=== PATIENT | female | born 1995 | race Caucasian/White ===

== ENCOUNTER → 2016-11-06 | Outpatient (CLI) | payer BC, MEDICAID ==
[~2016-11-06] MED LIST: ACET50TA PO; IBUP-1114 PO; IBUP80TA PO; PRENTAB9 PO; VALT500T PO
[2016-11-06 15:15] LABS: CONTROL LINE HCG INT CTR LINE PRESENT
== END | disposition home or self-care (01) ==
LOC: M LAB 13:43
PROVIDERS: ATTEND Advanced Practice Midwife
DX: N91.2 Amenorrhea, unspecified (principal)

== ENCOUNTER → 2016-11-20 | Outpatient (CLI) | payer BC, MEDICAID ==
--- NOTE | 2016-11-20 18:40 | REP ---
Clinical: Back pain. Comparison: 12/28/2014 . Technique: AP, lateral, bilateral oblique, and coned-down views. Findings: Alignment and lordosis is maintained. The vertebral bodies including transverse process and spinous processes are intact and normal. There is no evidence for acute fracture / compression injury or subluxation. No evidence for spondylolysis or spondylolisthesis. No significant degenerative change is noted. Impression: Normal lumbosacral spine radiograph series. Signed by Dong Talbert MD 11/20/2016 06:32 P
== END ==
LOC: M WUC 18:14
PROVIDERS: ATTEND Family Medicine
DX: M54.5 Low back pain (principal)

== ENCOUNTER → 2017-03-04 | Outpatient (REF) | payer BC, MEDICAID | LOC: M LAB REF 17:02 | PROVIDERS: ATTEND Physician Assistant | DX: N39.0 Urinary tract infection, site not specified (principal) ==

== ENCOUNTER 2017-04-16 14:40 | Emergency (ER) | payer BC, MEDICAID ==
[~2017-04-16] VITALS: Ht 157.5 cm; Wt 50.4 kg
[2017-04-16 14:40] VITALS: BP 120/76
== END 2017-04-16 15:34 | disposition left against medical advice (07) ==
LOC: M ED 14:40
DX: N89.8 Other specified noninflammatory disorders of vagina (principal)

== ENCOUNTER 2017-04-24 14:43 | Emergency (ER) | payer BC, MEDICAID ==
[~2017-04-24] VITALS: Ht 157.5 cm; Wt 50.5 kg
[2017-04-24 18:04] VITALS: BP 125/73
[2017-04-24] MEDS ORDERED: AZITHROMYCIN 250 MG TAB PO ONE (18:15)
== END 2017-04-24 18:18 | disposition home or self-care (01) ==
LOC: M ED 14:43
DX: N93.8 Other specified abnormal uterine and vaginal bleeding (principal); A56.02 Chlamydial vulvovaginitis

== ENCOUNTER 2017-05-11 15:38 | Emergency (ER) | payer BC, MEDICAID ==
[~2017-05-11] VITALS: Ht 157.5 cm; Wt 50.4 kg
[2017-05-11 18:43] VITALS: BP 116/74
== END 2017-05-11 18:44 | disposition home or self-care (01) ==
LOC: M ED 15:38
DX: R10.2 Pelvic and perineal pain (principal); N89.8 Other specified noninflammatory disorders of vagina; Z87.440 Personal history of urinary (tract) infections

== ENCOUNTER → 2017-10-16 | Outpatient (CLI) | payer BC, MEDICAID | LOC: M RAD 10:23 | DX: O03.9 Complete or unspecified spontaneous abortion without complication (principal); Z3A.01 Less than 8 weeks gestation of pregnancy | CPT/HCPCS: 76801 ==

== ENCOUNTER 2018-03-18 02:32 | Emergency (ER) | payer BC, MEDICAID ==
[2018-03-18 05:15] LABS: BEDSIDE GLUCOSE 120 MG/DL (70-105)
[2018-03-18 05:21] LABS: BASO % 0.6 % (0.0-1.0); EOS # 0.1 10^3/uL (0.0-0.50); EOS % 1.3 % (0.0-3.0); IMMATURE GRANULOCYTE % 0.2 % (0-3.0); LYMPH # 1.7 10^3/uL (1.5-6.5); LYMPH % 32.7 % (24.0-44.0); MEAN CORPUSCULAR HEMOGLOBIN 29.7 pg (27.0-33.0); MEAN CORPUSCULAR HGB CONC 34.2 g/dl (32.0-36.5); MEAN CORPUSCULAR VOLUME 86.8 fl (80.0-96.0); MONO # 0.6 10^3/uL (0.0-0.8); MONO % 10.3 % (0.0-5.0); NEUTROPHILS # 2.9 10^3/uL (1.8-7.7); NEUTROPHILS % 54.9 % (36.0-66.0); PLATELET COUNT, AUTOMATED 290 10^3/uL (150-450); RED BLOOD COUNT 4.38 10^6/uL (4.00-5.40); RED CELL DISTRIBUTION WIDTH 12.7 % (11.5-14.5); WHITE BLOOD COUNT 5.3 10^3/uL (4.0-10.0)
[2018-03-18 05:26] LABS: CONTROL LINE HCG INT CTR LINE PRESENT; HCG, SERUM QUALITATIVE NEGATIVE (NEGATIVE)
[2018-03-18 05:39] LABS: OSMOLALITY SERUM 343 MOSM/KG (275-295)
[2018-03-18 05:43] LABS: ALBUMIN 3.9 GM/DL (3.2-5.2); ALBUMIN/GLOBULIN RATIO 0.93 (1.00-1.93); ALKALINE PHOSPHATASE 67 U/L (45-117); ALT/SGPT 23 U/L (12-78); ANION GAP 9 MEQ/L (8-16); AST/SGOT 24 U/L (7-37); BILIRUBIN,DIRECT < 0.1 MG/DL (0.0-0.2); BILIRUBIN,TOTAL 0.2 MG/DL (0.2-1.0); BLOOD UREA NITROGEN 6 MG/DL (7-18); CALCIUM LEVEL 8.1 MG/DL (8.5-10.1); CARBON DIOXIDE LEVEL 24 MEQ/L (21-32); CHLORIDE LEVEL 112 MEQ/L (98-107); CPK CREATINE PHOSPHOKINASE 304 U/L (26-192); CREATININE FOR GFR 0.76 MG/DL (0.55-1.30); ETHYL ALCOHOL (ETHANOL) 0.178 % (0.000-0.010); GLOMERULAR FILTRATION RATE > 60.0 (>60); GLUCOSE, FASTING 104 MG/DL (70-100); POTASSIUM SERUM 3.1 MEQ/L (3.5-5.1); SALICYLATE LEVEL < 1.7 MG/DL (5.0-30.0); SODIUM LEVEL 145 MEQ/L (136-145); TOTAL PROTEIN 8.1 GM/DL (6.4-8.2)
[2018-03-18 05:48] LABS: ACETAMINOPHEN LEVEL < 2.0 UG/ML (10.0-30.0)
[2018-03-18] MEDS: NS 1,000 ML IV (06:00)
[2018-03-18 07:01] LABS: LACTIC ACID SEPSIS PROTOCOL 1.3 MMOL/L (0.4-2.0)
[2018-03-18 07:10] LABS: AMPHETAMINES LEVEL URINE NEGATIVE (NEGATIVE); BARBITURATES URINE NEGATIVE (NEGATIVE); BENZODIAZEPINES URINE POSITIVE (NEGATIVE); CANNABINOIDS URINE NEGATIVE (NEGATIVE); COCAINE METABOLITE URINE NEGATIVE (NEGATIVE); METHADONE URINE NEGATIVE (NEGATIVE); OPIATES URINE NEGATIVE (NEGATIVE); PHENCYCLIDINE URINE NEGATIVE (NEGATIVE)
== END 2018-03-18 09:40 | disposition home or self-care (01) ==
LOC: M ED 02:32
DX: F10.129 Alcohol abuse with intoxication, unspecified (principal)
CPT/HCPCS: 93005

== ENCOUNTER → 2018-04-24 | Outpatient (CLI) | payer BC, MEDICAID | LOC: M OUTALCOH 12:36 | DX: Z13.9 Encounter for screening, unspecified (principal); F10.10 Alcohol abuse, uncomplicated | CPT/HCPCS: H0050 ==

== ENCOUNTER → 2018-05-08 | Outpatient (CLI) | payer BC, MEDICAID | LOC: M OUTALCOH 15:13 | DX: F10.10 Alcohol abuse, uncomplicated (principal) ==

== ENCOUNTER 2018-06-03 16:00 | Outpatient (RCR) | payer BC, MEDICAID | END 2018-06-29 | LOC: M OUTALCOH 06-10 16:00 | DX: F10.10 Alcohol abuse, uncomplicated (principal) ==

== ENCOUNTER 2018-07-01 16:00 | Outpatient (RCR) | payer BC, MEDICAID | END 2018-07-30 | LOC: M OUTALCOH 07-08 16:00 | DX: F10.10 Alcohol abuse, uncomplicated (principal) ==

== ENCOUNTER → 2018-07-22 | Outpatient (REF) | payer BC ==
[2018-07-22 12:51] LABS: BASO % 0.5 % (0.0-1.0); EOS # 0.3 10^3/uL (0.0-0.50); EOS % 4.2 % (0.0-3.0); HEMOGLOBIN 13.9 g/dl (12.0-15.5); IMMATURE GRANULOCYTE % 0.3 % (0-3.0); LYMPH # 2.2 10^3/uL (1.5-6.5); LYMPH % 34.6 % (24.0-44.0); MEAN CORPUSCULAR HEMOGLOBIN 30.2 pg (27.0-33.0); MEAN CORPUSCULAR HGB CONC 33.9 g/dl (32.0-36.5); MEAN CORPUSCULAR VOLUME 89.1 fl (80.0-96.0); MONO # 0.8 10^3/uL (0.0-0.8); NEUTROPHILS % 48.4 % (36.0-66.0); PLATELET COUNT, AUTOMATED 374 10^3/uL (150-450); RED CELL DISTRIBUTION WIDTH 12.1 % (11.5-14.5); WHITE BLOOD COUNT 6.2 10^3/uL (4.0-10.0)
[2018-07-22 23:28] LABS: ESTIMATED AVERAGE GLUCOSE 111 MG/DL (60-110); HEMOGLOBIN A1c 5.5 %
[2018-07-23 00:09] LABS: ALBUMIN/GLOBULIN RATIO 1.05 (1.00-1.93); ALKALINE PHOSPHATASE 65 U/L (45-117); ALT/SGPT 22 U/L (12-78); ANION GAP 11 MEQ/L (8-16); AST/SGOT 15 U/L (7-37); BILIRUBIN,TOTAL 0.2 MG/DL (0.2-1.0); BLOOD UREA NITROGEN 11 MG/DL (7-18); CALCIUM LEVEL 9.1 MG/DL (8.5-10.1); CARBON DIOXIDE LEVEL 24 MEQ/L (21-32); CHLORIDE LEVEL 106 MEQ/L (98-107); CHOLESTEROL LEVEL 120 MG/DL (<200); CHOLESTEROL RISK RATIO 3.076 (<5); GLOMERULAR FILTRATION RATE > 60.0 (>60); GLUCOSE, FASTING 64 MG/DL (70-100); HDL CHOLESTEROL 39 MG/DL (>40); LDL CHOLESTEROL 72 MG/DL (<100); NON-HDL-C 81 MG/DL; POTASSIUM SERUM 4.1 MEQ/L (3.5-5.1); SODIUM LEVEL 141 MEQ/L (136-145); TOTAL PROTEIN 7.8 GM/DL (6.4-8.2); TRIGLYCERIDES LEVEL 45 MG/DL (<150)
[2018-07-23 00:10] LABS: TOTAL 25(OH) VITAMIN D 65.2 NG/ML (30.0-100.0)
[2018-07-23 00:11] LABS: PTH INTACT 32.7 PG/ML (18.5-88.0)
== END ==
LOC: M SFHCPLAZ 11:42
DX: Z13.228 Encounter for screening for other metabolic disorders (principal); E55.9 Vitamin D deficiency, unspecified
CPT/HCPCS: 80053

== ENCOUNTER 2018-08-01 15:10 | Outpatient (RCR) | payer BC, MEDICAID | END 2018-08-29 | LOC: M OUTALCOH 15:10 | DX: F10.10 Alcohol abuse, uncomplicated (principal) ==

== ENCOUNTER 2018-09-26 11:00 | Outpatient (RCR) | payer BC, MEDICAID ==
[~2018-09-26 11:00] MED LIST changes: +MAPA500T2 PO
== END 2018-09-29 ==
LOC: M OUTALCOH 11:00
PROVIDERS: ATTEND Psychiatry & Neurology Psychiatry
DX: F10.10 Alcohol abuse, uncomplicated (principal)

== ENCOUNTER 2018-10-06 09:02 | Outpatient (RCR) | payer BC, MEDICAID | END 2018-10-30 | LOC: M OUTALCOH 09:02 | PROVIDERS: ATTEND Psychiatry & Neurology Psychiatry | DX: F10.10 Alcohol abuse, uncomplicated (principal) ==

== ENCOUNTER 2018-12-04 15:58 | Emergency (ER) | payer MEDICAID, SELFPAY ==
[~2018-12-04] VITALS: Ht 157.5 cm; Wt 50.5 kg
[2018-12-04 15:58] VITALS: BP 119/85
[~2018-12-04 15:58] MED LIST changes: -ACET50TA PO; +MAPA500T17 PO
[2018-12-04] MEDS ORDERED: DIFL150T PO (16:51)
[2018-12-04] MEDS ORDERED: FLAG500T PO (16:51)
== END 2018-12-04 17:02 | disposition home or self-care (01) ==
LOC: M ED 15:58
DX: N76.0 Acute vaginitis (principal)

== ENCOUNTER 2019-01-12 19:07 | Emergency (ER) | payer MEDICAID, OTHER ==
[~2019-01-12] VITALS: Ht 157.5 cm; Wt 50.5 kg
[~2019-01-12 19:07] MED LIST changes: +DIFL150T PO; +FLAG500T PO
[2019-01-12 21:26] LABS: APPEARANCE, URINE CLEAR (CLEAR); BACTERIA, URINE AUTO NEGATIVE (NEGATIVE); BILIRUBIN, URINE AUTO NEGATIVE (NEGATIVE); BLOOD, URINE BLOOD NEGATIVE (NEGATIVE); COLOR, URINE STRAW (YELLOW); GLUCOSE, URINE (UA) AUTO NEGATIVE (NEGATIVE); KETONE, URINE AUTO NEGATIVE (NEGATIVE); LEUKOCYTE ESTERASE, URINE AUTO TRACE (NEGATIVE); NITRITE, URINE AUTO NEGATIVE (NEGATIVE); PROTEIN, URINE AUTO NEGATIVE (NEGATIVE); RBC, URINE AUTO 2 /HPF (0-3); SQUAMOUS EPITHELIAL CELL UR AU 1 /HPF (0-6); UROBILINOGEN, URINE AUTO 0.2 mg/dL (0.0-2.0); WBC, URINE AUTO 3 /HPF (0-3)
[2019-01-12] MEDS ORDERED: metroNIDAZOLE (FLAGYL) 500 MG TAB PO ONE (22:15)
[2019-01-12] MEDS ORDERED: FLAG500T PO (22:29)
[2019-01-12 22:36] VITALS: BP 128/82
[2019-01-12 23:27] LABS: CHLAMYDIA DNA AMPLIFICATION NEGATIVE (NEGATIVE); GC DNA AMPLIFICATION NEGATIVE (NEGATIVE)
== END 2019-01-12 22:38 | disposition home or self-care (01) ==
LOC: M ED 19:07
DX: N76.0 Acute vaginitis (principal)

== ENCOUNTER → 2020-08-23 | Outpatient (REF) | payer OTHER, SELFPAY ==
[2020-08-23 17:00] LABS: BASO # 0.1 10^3/uL (0.0-0.2); BASO % 0.7 % (0.0-1.0); EOS # 0.2 10^3/uL (0.0-0.5); EOS % 2.1 % (0.0-3.0); HEMATOCRIT 40.9 % (36.0-47.0); HEMOGLOBIN 13.5 g/dl (12.0-15.5); LYMPH # 2.1 10^3/uL (1.5-5.0); LYMPH % 29.8 % (24.0-44.0); MEAN CORPUSCULAR HEMOGLOBIN 30.3 pg (27.0-33.0); MEAN CORPUSCULAR VOLUME 91.9 fl (80.0-96.0); MONO # 0.8 10^3/uL (0.0-0.8); MONO % 10.9 % (0.0-5.0); NEUTROPHILS # 3.9 10^3/uL (1.5-8.5); NEUTROPHILS % 56.2 % (36.0-66.0); PLATELET COUNT, AUTOMATED 353 10^3/uL (150-450); RED BLOOD COUNT 4.45 10^6/uL (4.00-5.40)
[2020-08-23 17:33] LABS: ALT/SGPT 23 U/L (12-78); BILIRUBIN,TOTAL 0.4 MG/DL (0.2-1.0); BLOOD UREA NITROGEN 9 MG/DL (7-18); CALCIUM LEVEL 9.8 MG/DL (8.5-10.1); CARBON DIOXIDE LEVEL 30 MEQ/L (21-32); CHLORIDE LEVEL 103 MEQ/L (98-107); CREATININE FOR GFR 0.92 MG/DL (0.55-1.30); FREE T4 0.89 NG/DL (0.76-1.46); GLOMERULAR FILTRATION RATE > 60.0 (>60); GLUCOSE, FASTING 81 MG/DL (70-100); POTASSIUM SERUM 4.3 MEQ/L (3.5-5.1); SODIUM LEVEL 137 MEQ/L (136-145); TOTAL PROTEIN 7.6 GM/DL (6.4-8.2)
== END ==
LOC: M SFHCPLAZ 15:51
PROVIDERS: ATTEND Nurse Practitioner Family
DX: Z13.228 Encounter for screening for other metabolic disorders (principal); F41.1 Generalized anxiety disorder

== ENCOUNTER 2020-09-09 16:22 | Emergency (ER) | payer OTHER ==
[~2020-09-09] VITALS: Ht 157.5 cm; Wt 63.4 kg
[2020-09-09 16:23] VITALS: BP 119/71
[2020-09-09] MEDS ORDERED: PHEN-501 (16:46)
[2020-09-09] MEDS ORDERED: CIPR500T3 (16:46)
[2020-09-09] MEDS ORDERED: FLUC150T (16:46)
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
== END 2020-09-09 18:09 | disposition home or self-care (01) ==
LOC: M ED 16:22
DX: L25.9 Unspecified contact dermatitis, unspecified cause (principal); M79.89 Other specified soft tissue disorders; Z79.2 Long term (current) use of antibiotics; Z79.899 Other long term (current) drug therapy; Z87.440 Personal history of urinary (tract) infections

== ENCOUNTER 2020-09-16 15:34 | Emergency (ER) | payer OTHER ==
[~2020-09-16] VITALS: Ht 157.5 cm; Wt 63.8 kg
[~2020-09-16 15:34] MED LIST changes: +CIPR500T3; +FLUC150T; +PHEN-501
[2020-09-16] MEDS ORDERED: AZITHROMYCIN 250MG TABLET PO ONE (17:30)
[2020-09-16 17:44] VITALS: BP 123/69
[2020-09-16 19:02] LABS: CHLAMYDIA DNA AMPLIFICATION NEGATIVE (NEGATIVE); GC DNA AMPLIFICATION NEGATIVE (NEGATIVE)
== END 2020-09-16 17:45 | disposition home or self-care (01) ==
LOC: M ED 15:34
DX: Z20.2 Contact with and (suspected) exposure to infections with a predominantly sexual mode of transmission (principal); Z97.5 Presence of (intrauterine) contraceptive device; F17.200 Nicotine dependence, unspecified, uncomplicated

== ENCOUNTER → 2020-10-23 | Outpatient (REF) | payer OTHER | LOC: M WUC 19:36 | PROVIDERS: ATTEND Physician Assistant | DX: N76.0 Acute vaginitis (principal) ==

== ENCOUNTER → 2020-12-24 | Outpatient (REF) | payer OTHER ==
[2020-12-24 20:33] LABS: CHLAMYDIA DNA AMPLIFICATION NEGATIVE (NEGATIVE); GC DNA AMPLIFICATION NEGATIVE (NEGATIVE)
== END ==
LOC: M LAB REF 18:06
PROVIDERS: ATTEND Physician Assistant
DX: N76.0 Acute vaginitis (principal)

== ENCOUNTER → 2021-02-10 | Outpatient (REF) | payer OTHER ==
[2021-02-10 21:13] LABS: CHLAMYDIA DNA AMPLIFICATION NEGATIVE (NEGATIVE); GC DNA AMPLIFICATION NEGATIVE (NEGATIVE)
== END ==
LOC: M WUC 19:33
PROVIDERS: ATTEND Nurse Practitioner Family
DX: N76.0 Acute vaginitis (principal)

== ENCOUNTER → 2021-03-08 | Outpatient (CLI) | payer OTHER ==
[2021-03-08 12:11] LABS: BASO % 0.4 % (0.0-1.0); EOS # 0.1 10^3/uL (0.0-0.5); EOS % 1.7 % (0.0-3.0); HEMOGLOBIN 14.6 g/dl (12.0-15.5); LYMPH % 28.2 % (24.0-44.0); MEAN CORPUSCULAR HEMOGLOBIN 31.3 pg (27.0-33.0); MEAN CORPUSCULAR VOLUME 92.1 fl (80.0-96.0); MONO # 0.8 10^3/uL (0.0-0.8); MONO % 10.8 % (2.0-8.0); NEUTROPHILS # 4.2 10^3/uL (1.5-8.5); NEUTROPHILS % 58.6 % (36.0-66.0); PLATELET COUNT, AUTOMATED 374 10^3/uL (150-450); RED BLOOD COUNT 4.67 10^6/uL (4.00-5.40); WHITE BLOOD COUNT 7.1 10^3/uL (4.0-10.0)
[2021-03-08 18:50] LABS: ALBUMIN 4.2 GM/DL (3.2-5.2); ALT/SGPT 27 U/L (12-78); BILIRUBIN,TOTAL 0.9 MG/DL (0.2-1.0); BLOOD UREA NITROGEN 6 MG/DL (7-18); CALCIUM LEVEL 9.3 MG/DL (8.5-10.1); CARBON DIOXIDE LEVEL 29 MEQ/L (21-32); CHLORIDE LEVEL 102 MEQ/L (98-107); CREATININE FOR GFR 0.81 MG/DL (0.55-1.30); GLOMERULAR FILTRATION RATE > 60.0 (>60); GLUCOSE, FASTING 87 MG/DL (70-100); SODIUM LEVEL 139 MEQ/L (136-145)
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
== END ==
LOC: M WUC 11:12
PROVIDERS: ATTEND Physician Assistant
DX: R07.9 Chest pain, unspecified (principal); R06.02 Shortness of breath; Z20.828 Contact with and (suspected) exposure to other viral communicable diseases

== ENCOUNTER → 2021-03-14 | Outpatient (REF) | payer OTHER | LOC: M WUC 20:26 | PROVIDERS: ATTEND Physician Assistant | DX: J02.9 Acute pharyngitis, unspecified (principal) ==

== ENCOUNTER → 2021-03-31 | Outpatient (REF) | LOC: M LAB 11:36 → EDSTATUS 11:40 → M LAB 11:40 | PROVIDERS: ATTEND Nurse Practitioner Adult Health | DX: Z00.00 Encounter for general adult medical examination without abnormal findings (principal) ==

== ENCOUNTER → 2021-04-26 | Outpatient (REF) | payer OTHER ==
[2021-04-27 12:53] LABS: GC DNA AMPLIFICATION NEGATIVE (NEGATIVE)
== END ==
LOC: M LAB REF 10:46
PROVIDERS: ATTEND Nurse Practitioner Family
DX: N76.0 Acute vaginitis (principal)

== ENCOUNTER → 2021-06-03 | Outpatient (REF) | payer OTHER ==
[2021-06-03 21:03] LABS: GC DNA AMPLIFICATION NEGATIVE (NEGATIVE)
== END ==
LOC: M WUC 19:18
PROVIDERS: ATTEND Physician Assistant
DX: R30.0 Dysuria (principal)

== ENCOUNTER 2021-07-04 09:15 | Emergency (ER) | payer OTHER ==
[~2021-07-04] VITALS: Ht 157.5 cm; Wt 62.7 kg
[2021-07-04] MEDS ORDERED: IBUP80TA PO (09:29)
[2021-07-04] MEDS ORDERED: ACET-907 PO (09:29)
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
[2021-07-04] MEDS ORDERED: ONDA4TAB6 PO (12:38)
[2021-07-04] MEDS ORDERED: IBUP-1022 PO (12:38)
[2021-07-04 12:44] VITALS: BP 145/90
== END 2021-07-04 13:02 | disposition home or self-care (01) ==
LOC: M ED 09:15
DX: S06.0X0A Concussion without loss of consciousness, initial encounter (principal); T14.8XXA Other injury of unspecified body region, initial encounter; Y04.8XXA Assault by other bodily force, initial encounter; Y92.018 Other place in single-family (private) house as the place of occurrence of the external cause; G93.0 Cerebral cysts

== ENCOUNTER → 2021-08-17 | Outpatient (REF) | payer OTHER ==
[~2021-08-17] MED LIST changes: +ACET-907 PO; +IBUP-1022 PO; +ONDA4TAB6 PO
[2021-08-17 17:40] LABS: GC DNA AMPLIFICATION NEGATIVE (NEGATIVE)
== END ==
LOC: M LAB REF 15:30
PROVIDERS: ATTEND Physician Assistant
DX: N76.0 Acute vaginitis (principal)

== ENCOUNTER 2022-01-13 00:28 | Emergency (ER) | payer OTHER ==
[~2022-01-13] VITALS: Ht 157.5 cm; Wt 63.6 kg
[~2022-01-13 00:28] MED LIST changes: -FLUC150T; +FLUC150T9
[2022-01-13 02:07] LABS: HEMATOCRIT 36.7 % (36.0-47.0); HEMOGLOBIN 12.8 g/dl (12.0-15.5); MEAN CORPUSCULAR HGB CONC 34.9 g/dl (32.0-36.5); MEAN CORPUSCULAR VOLUME 91.8 fl (80.0-96.0); PLATELET COUNT, AUTOMATED 325 10^3/uL (150-450)
[2022-01-13 02:30] LABS: AMPHETAMINES LEVEL URINE NEGATIVE (NEGATIVE); BARBITURATES URINE NEGATIVE (NEGATIVE); BENZODIAZEPINES URINE NEGATIVE (NEGATIVE); CANNABINOIDS URINE NEGATIVE (NEGATIVE); COCAINE METABOLITE URINE NEGATIVE (NEGATIVE); METHADONE URINE NEGATIVE (NEGATIVE); OPIATES URINE NEGATIVE (NEGATIVE); PHENCYCLIDINE URINE NEGATIVE (NEGATIVE)
[2022-01-13 02:32] LABS: HCG, SERUM QUALITATIVE NEGATIVE (NEGATIVE)
[2022-01-13 02:44] LABS: ACETAMINOPHEN LEVEL < 2.0 UG/ML (10.0-30.0); ALBUMIN 3.8 GM/DL (3.2-5.2); ALT/SGPT 30 U/L (12-78); BILIRUBIN,DIRECT 0.1 MG/DL (0.0-0.2); BILIRUBIN,TOTAL 0.3 MG/DL (0.2-1.0); BLOOD UREA NITROGEN 10 MG/DL (7-18); CALCIUM LEVEL 9.2 MG/DL (8.5-10.1); CARBON DIOXIDE LEVEL 28 MEQ/L (21-32); CHLORIDE LEVEL 108 MEQ/L (98-107); CREATININE FOR GFR 0.78 MG/DL (0.55-1.30); GLOMERULAR FILTRATION RATE > 60.0 (>60); GLUCOSE, FASTING 95 MG/DL (70-100); POTASSIUM SERUM 3.8 MEQ/L (3.5-5.1); SALICYLATE LEVEL < 1.7 MG/DL (5.0-30.0); SODIUM LEVEL 142 MEQ/L (136-145); TOTAL PROTEIN 7.2 GM/DL (6.4-8.2)
[2022-01-13 06:14] VITALS: BP 108/60
== END 2022-01-13 06:15 | disposition home or self-care (01) ==
LOC: M ED 00:28
DX: F43.0 Acute stress reaction (principal)

== ENCOUNTER 2022-01-30 20:06 | Emergency (ER) | payer OTHER ==
[~2022-01-30] VITALS: Ht 162.6 cm; Wt 54.0 kg
[2022-01-30 21:34] LABS: HEMATOCRIT 40.1 % (36.0-47.0); HEMOGLOBIN 13.6 g/dl (12.0-15.5); MEAN CORPUSCULAR HEMOGLOBIN 31.5 pg (27.0-33.0); MEAN CORPUSCULAR HGB CONC 33.9 g/dl (32.0-36.5); MEAN CORPUSCULAR VOLUME 92.8 fl (80.0-96.0); PLATELET COUNT, AUTOMATED 322 10^3/uL (150-450); RED BLOOD COUNT 4.32 10^6/uL (4.00-5.40); WHITE BLOOD COUNT 5.1 10^3/uL (4.0-10.0)
[2022-01-30 21:57] LABS: HCG, SERUM QUALITATIVE NEGATIVE (NEGATIVE)
[2022-01-30 22:09] LABS: ACETAMINOPHEN LEVEL < 2.0 UG/ML (10.0-30.0); ALBUMIN 4.3 GM/DL (3.2-5.2); ALT/SGPT 28 U/L (12-78); BILIRUBIN,DIRECT < 0.1 MG/DL (0.0-0.2); BILIRUBIN,TOTAL 0.3 MG/DL (0.2-1.0); BLOOD UREA NITROGEN 8 MG/DL (7-18); CARBON DIOXIDE LEVEL 26 MEQ/L (21-32); CHLORIDE LEVEL 111 MEQ/L (98-107); CREATININE FOR GFR 0.79 MG/DL (0.55-1.30); ETHYL ALCOHOL (ETHANOL) 0.156 % (0.000-0.010); GLOMERULAR FILTRATION RATE > 60.0 (>60); GLUCOSE, FASTING 98 MG/DL (70-100); POTASSIUM SERUM 4.3 MEQ/L (3.5-5.1); SALICYLATE LEVEL < 1.7 MG/DL (5.0-30.0); SODIUM LEVEL 143 MEQ/L (136-145)
[2022-01-30 22:13] LABS: AMPHETAMINES LEVEL URINE NEGATIVE (NEGATIVE); BARBITURATES URINE NEGATIVE (NEGATIVE); BENZODIAZEPINES URINE NEGATIVE (NEGATIVE); CANNABINOIDS URINE NEGATIVE (NEGATIVE); COCAINE METABOLITE URINE NEGATIVE (NEGATIVE); METHADONE URINE NEGATIVE (NEGATIVE); OPIATES URINE NEGATIVE (NEGATIVE); PHENCYCLIDINE URINE NEGATIVE (NEGATIVE)
[2022-01-30] MEDS ORDERED: ACETAMINOPHEN TAB 650MG DOSE (2X325MG) PO ONE (23:40)
[2022-01-31 00:55] LABS: RSV AMPLIFICATION NEGATIVE (NEGATIVE)
[2022-01-31 05:59] VITALS: BP 119/79
== END 2022-01-31 06:03 | disposition home or self-care (01) ==
LOC: M ED 20:06
DX: F10.120 Alcohol abuse with intoxication, uncomplicated (principal); R45.850 Homicidal ideations; U07.1 COVID-19

== ENCOUNTER → 2022-04-24 | Outpatient (REF) | payer OTHER ==
[2022-04-24 23:12] LABS: GC DNA AMPLIFICATION NEGATIVE (NEGATIVE)
== END ==
LOC: M LAB REF 20:51
PROVIDERS: ATTEND Student in an Organized Health Care Education/Training Program
DX: R30.0 Dysuria (principal)

== ENCOUNTER 2022-05-24 08:55 | Outpatient (RCR) | payer MEDICAID | END 2022-05-30 | LOC: M OUTALCOH 08:55 | PROVIDERS: ATTEND Psychiatry & Neurology Psychiatry | DX: F10.20 Alcohol dependence, uncomplicated (principal) ==

== ENCOUNTER 2022-06-28 08:00 | Outpatient (RCR) | payer MEDICAID | END 2022-06-29 | LOC: M OUTALCOH 08:00 | PROVIDERS: ATTEND Psychiatry & Neurology Psychiatry | DX: F10.20 Alcohol dependence, uncomplicated (principal) ==

== ENCOUNTER → 2022-07-09 | Outpatient (REF) | payer MEDICAID | LOC: M LAB REF 16:06 | PROVIDERS: ATTEND Physician Assistant | DX: R30.0 Dysuria (principal) ==

== ENCOUNTER 2022-07-25 10:25 | Outpatient (RCR) | payer MEDICAID | END 2022-07-30 | LOC: M OUTALCOH 10:25 | PROVIDERS: ATTEND Psychiatry & Neurology Psychiatry | DX: F10.20 Alcohol dependence, uncomplicated (principal) ==

== ENCOUNTER 2022-08-28 09:59 | Outpatient (RCR) | payer MEDICAID | END 2022-08-29 | LOC: M OUTALCOH 09:59 | PROVIDERS: ATTEND Psychiatry & Neurology Psychiatry | DX: F10.20 Alcohol dependence, uncomplicated (principal) ==

== ENCOUNTER 2022-09-12 10:07 | Outpatient (RCR) | payer MEDICAID | END 2022-09-29 | LOC: M OUTALCOH 10:07 | PROVIDERS: ATTEND Psychiatry & Neurology Psychiatry | DX: F10.20 Alcohol dependence, uncomplicated (principal) ==

== ENCOUNTER 2022-11-28 15:03 | Outpatient (RCR) | payer MEDICAID | END 2022-12-28 | LOC: M OUTALCOH 15:03 | PROVIDERS: ATTEND Psychiatry & Neurology Psychiatry | DX: F10.20 Alcohol dependence, uncomplicated (principal) ==

== ENCOUNTER → 2022-12-07 | Outpatient (CLI) | payer MEDICAID, OTHER ==
[2022-12-07 17:08] LABS: HEMATOCRIT 37.2 % (36.0-47.0); HEMOGLOBIN 12.6 g/dl (12.0-15.5); MEAN CORPUSCULAR HEMOGLOBIN 30.7 pg (27.0-33.0); MEAN CORPUSCULAR HGB CONC 33.9 g/dl (32.0-36.5); MEAN CORPUSCULAR VOLUME 90.5 fl (80.0-96.0); PLATELET COUNT, AUTOMATED 297 10^3/uL (150-450); RED BLOOD COUNT 4.11 10^6/uL (4.00-5.40); WHITE BLOOD COUNT 7.1 10^3/uL (4.0-10.0)
[2022-12-07 17:49] LABS: HIV 1&2 SCREEN CENTAUR NEGATIVE (NEGATIVE)
[2022-12-07 19:04] LABS: GC DNA AMPLIFICATION NEGATIVE (NEGATIVE)
== END ==
LOC: M PLALAB 15:27
PROVIDERS: ATTEND Advanced Practice Midwife
DX: Z34.81 Encounter for supervision of other normal pregnancy, first trimester (principal)

== ENCOUNTER → 2023-02-15 | Outpatient (REF) | payer MEDICAID, OTHER | LOC: M LAB REF 12:19 | PROVIDERS: ATTEND Nurse Practitioner Family | DX: R30.0 Dysuria (principal) ==

== ENCOUNTER → 2023-03-14 | Outpatient (CLI) | payer OTHER ==
[2023-03-14 13:28] LABS: HEMATOCRIT 33.6 % (36.0-47.0); HEMOGLOBIN 11.2 g/dl (12.0-15.5); MEAN CORPUSCULAR HEMOGLOBIN 31.9 pg (27.0-33.0); MEAN CORPUSCULAR HGB CONC 33.3 g/dl (32.0-36.5); MEAN CORPUSCULAR VOLUME 95.7 fl (80.0-96.0); PLATELET COUNT, AUTOMATED 238 10^3/uL (150-450); RED BLOOD COUNT 3.51 10^6/uL (4.00-5.40); WHITE BLOOD COUNT 7.2 10^3/uL (4.0-10.0)
[2023-03-14 15:12] LABS: GC DNA AMPLIFICATION NEGATIVE (NEGATIVE)
== END ==
LOC: M PLALAB 08:46
PROVIDERS: ATTEND Obstetrics & Gynecology
DX: Z34.82 Encounter for supervision of other normal pregnancy, second trimester (principal)

== ENCOUNTER → 2023-03-19 | Outpatient (CLI) | payer MEDICAID | LOC: M OUTALCOH 08:39 | PROVIDERS: ATTEND Psychiatry & Neurology Psychiatry | DX: Z00.00 Encounter for general adult medical examination without abnormal findings (principal) ==

== ENCOUNTER → 2023-03-26 | Outpatient (CLI) | payer OTHER | LOC: M WHC 08:30 | PROVIDERS: ATTEND Obstetrics & Gynecology | DX: Z34.92 Encounter for supervision of normal pregnancy, unspecified, second trimester (principal) ==

== ENCOUNTER → 2023-05-10 | Outpatient (CLI) | payer OTHER | LOC: M WHC 14:10 | PROVIDERS: ATTEND Advanced Practice Midwife | DX: Z34.83 Encounter for supervision of other normal pregnancy, third trimester (principal) ==

== ENCOUNTER → 2023-05-20 | Outpatient (REF) | payer OTHER | LOC: M SFHCWAGY 13:37 | PROVIDERS: ATTEND Specialist | DX: Z34.83 Encounter for supervision of other normal pregnancy, third trimester (principal) ==

== ENCOUNTER 2023-06-16 00:33 | Inpatient (IN) | payer OTHER ==
[~2023-06-16] VITALS: Ht 157.5 cm; Wt 70.4 kg
[2023-06-16] VITALS (14 sets, daily range): BP systolic 93–137; BP diastolic 52–94
[2023-06-16] MEDS ORDERED: OXYTOCIN DRIP 30 UNITS in IV 1 EA IV PRN (02:45)
[2023-06-16] MEDS ORDERED: PENICILLIN G POTASSIUM 5 MU IV 5 MU in D5W MINI-BAG PLUS 100 ML IV STA (02:45)
[2023-06-16] MEDS ORDERED: LIDOCAINE 1% MDV 20ML VIAL INFIL PRN (02:45)
[2023-06-16] MEDS ORDERED: NALBUPHINE HCL (10 MG/ML) 100MG/10ML MDV IV ONE (02:55)
[2023-06-16 03:38] LABS: HEMATOCRIT 31.6 % (36.0-47.0); HEMOGLOBIN 10.5 g/dl (12.0-15.5); MEAN CORPUSCULAR HGB CONC 33.2 g/dl (32.0-36.5); MEAN CORPUSCULAR VOLUME 87.3 fl (80.0-96.0); PLATELET COUNT, AUTOMATED 267 10^3/uL (150-450); RED BLOOD COUNT 3.62 10^6/uL (4.00-5.40); WHITE BLOOD COUNT 9.5 10^3/uL (4.0-10.0)
[2023-06-16] MEDS ORDERED: OXYTOCIN DRIP 30 UNITS in IV 1 EA IV SCH (07:20)
[2023-06-16] MEDS: LR 1,000 ML IV SCH ×2 (07:35→15:20)
[2023-06-16] MEDS: PEN G POT 3,000,000 UNIT/50 ML 3,000,000 UNIT in IV 1 EA IV SCH ×4 (07:35→20:37)
[2023-06-16] MEDS: miSOPROStol 50MCG 1/2 TABLET SL SCH ×3 (13:19→21:58)
[2023-06-17] MEDS: PEN G POT 3,000,000 UNIT/50 ML 3,000,000 UNIT in IV 1 EA IV SCH ×3 (00:31→07:37)
[2023-06-17] MEDS: miSOPROStol 50MCG 1/2 TABLET SL SCH ×2 (00:31→05:00)
[2023-06-17] MEDS: LR 1,000 ML IV SCH ×2 (00:31→07:37)
[2023-06-17 00:34] VITALS: BP 112/61
[2023-06-17 06:05] VITALS: BP 109/68
[2023-06-17 07:10] VITALS: BP 138/86
[2023-06-17 08:08] VITALS: BP 131/86
== END 2023-06-17 09:40 | disposition home or self-care (01) | DRG 565 ==
LOC: M LDO 00:33 → M LDI 02:42
PROVIDERS: ADMIT Specialist; ATTEND Specialist
PROC: 3E033VJ Introduction of Other Hormone into Peripheral Vein, Percutaneous Approach (ICD-10-PCS; principal; 2023-06-16)
DX: O47.1 False labor at or after 37 completed weeks of gestation (principal); O99.820 Streptococcus B carrier state complicating pregnancy; Z3A.39 39 weeks gestation of pregnancy

== ENCOUNTER → 2023-09-04 | Outpatient (REF) | payer OTHER ==
[2023-09-04 20:48] LABS: CHLAMYDIA DNA AMPLIFICATION NEGATIVE (NEGATIVE); GC DNA AMPLIFICATION NEGATIVE (NEGATIVE)
== END ==
LOC: M LAB REF 18:32
PROVIDERS: ATTEND Student in an Organized Health Care Education/Training Program
DX: R30.0 Dysuria (principal)

== ENCOUNTER → 2024-06-17 | Outpatient (REF) | payer OTHER ==
[~2024-06-17] MED LIST changes: +ONDA-282 PO; -ONDA4TAB6 PO
== END ==
LOC: M LAB REF 16:10
PROVIDERS: ATTEND Nurse Practitioner Family
DX: R30.0 Dysuria (principal)

== ENCOUNTER → 2024-08-12 | Outpatient (REF) | payer OTHER ==
[~2024-08-12] MED LIST changes: +AMOX875T2 PO
[2024-08-12 22:04] LABS: Trichomonas vaginalis (AMP) NOT DETECTED (NEGATIVE)
[2024-08-12 22:27] LABS: GC DNA AMPLIFICATION NEGATIVE (NEGATIVE)
== END ==
LOC: M LAB REF 19:21
PROVIDERS: ATTEND Physician Assistant
DX: R82.4 Acetonuria (principal)

== ENCOUNTER 2024-08-13 09:03 | Emergency (ER) | payer OTHER ==
[~2024-08-13] VITALS: Ht 157.5 cm; Wt 66.1 kg
[~2024-08-13 09:03] MED LIST changes: -AMOX875T2 PO
[2024-08-13] MEDS ORDERED: AMOX875T2 PO (13:50)
[2024-08-13 14:02] VITALS: BP 128/87; TEMP 97.6; O2SAT 96
== END 2024-08-13 14:05 | disposition home or self-care (01) ==
LOC: M ED 09:03
DX: M54.2 Cervicalgia (principal); R51.9 Headache, unspecified; M54.50 Low back pain, unspecified; V49.40XA Driver injured in collision with unspecified motor vehicles in traffic accident, initial encounter; Z79.2 Long term (current) use of antibiotics

== ENCOUNTER → 2024-12-28 | Outpatient (CLI) | payer OTHER ==
[~2024-12-28] MED LIST changes: +AMOX875T2 PO
[2024-12-28 15:20] LABS: HEMATOCRIT 35.8 % (36.0-47.0); MEAN CORPUSCULAR HEMOGLOBIN 30.1 pg (27.0-33.0); MEAN CORPUSCULAR HGB CONC 33.5 g/dl (32.0-36.5); MEAN CORPUSCULAR VOLUME 89.7 fl (80.0-96.0); PLATELET COUNT, AUTOMATED 369 10^3/uL (150-450); RED BLOOD COUNT 3.99 10^6/uL (4.00-5.40)
[2024-12-28 16:12] LABS: HIV 1&2 SCREEN NEGATIVE (NEGATIVE)
[2024-12-28 16:19] LABS: HEPATITIS C VIRUS ABY INDEX 0.04 INDEX (<0.8)
[2024-12-28 17:20] LABS: Trichomonas vaginalis (AMP) NOT DETECTED (NEGATIVE)
[2024-12-28 17:44] LABS: GC DNA AMPLIFICATION NEGATIVE (NEGATIVE)
== END ==
LOC: M PLALAB 13:07
PROVIDERS: ATTEND Nurse Practitioner Family
DX: Z34.80 Encounter for supervision of other normal pregnancy, unspecified trimester (principal)

== ENCOUNTER → 2025-04-14 | Outpatient (CLI) | payer OTHER ==
[2025-04-14 17:38] LABS: PLATELET COUNT, AUTOMATED 279 10^3/uL (150-450)
[2025-04-14 18:02] LABS: GLUCOSE CHALLENGE TEST 1 HOUR 101 MG/DL (LESS THAN 140)
[2025-04-14 18:32] LABS: HIV 1&2 SCREEN NEGATIVE (NEGATIVE)
[2025-04-14 18:33] LABS: Trichomonas vaginalis (AMP) NOT DETECTED (NEGATIVE)
[2025-04-14 18:40] LABS: HEPATITIS C VIRUS ABY INDEX < 0.02 INDEX (<0.8)
[2025-04-14 18:57] LABS: GC DNA AMPLIFICATION NEGATIVE (NEGATIVE)
== END ==
LOC: M PLALAB 13:06
PROVIDERS: ATTEND Obstetrics & Gynecology
DX: Z33.1 Pregnant state, incidental (principal)

== ENCOUNTER → 2025-05-19 | Outpatient (REF) | payer OTHER ==
[~2025-05-19] MED LIST changes: +LABE20TAB PO; +MACR100C43 PO
== END ==
LOC: M WUC 20:25
PROVIDERS: ATTEND Physician Assistant
DX: N76.0 Acute vaginitis (principal)

== ENCOUNTER 2025-05-20 11:36 | Outpatient (CLI) | payer OTHER ==
[~2025-05-20] VITALS: Ht 157.5 cm; Wt 74.2 kg
[~2025-05-20 11:36] MED LIST changes: +IBUP-1022 PO; -IBUP600T42 PO; -LABE20TAB PO; -MACR100C43 PO
[2025-05-20 11:52] VITALS: BP 141/106
[2025-05-20] MEDS ORDERED: BETAMETHASONE SOLUSPAN 6 MG/ML 5 ML VIAL IM SCH (12:00)
[2025-05-20] MEDS ORDERED: LABETALOL 100 MG/20 ML VIAL IV ONE (12:00)
[2025-05-20 12:08] VITALS: BP 135/94
[2025-05-20 12:19] LABS: APPEARANCE, URINE HAZY (CLEAR); BACTERIA, URINE AUTO 2+ (NEGATIVE); BILIRUBIN, URINE AUTO NEGATIVE (NEGATIVE); BLOOD, URINE BLOOD NEGATIVE (NEGATIVE); GLUCOSE, URINE (UA) AUTO NEGATIVE (NEGATIVE); KETONE, URINE AUTO NEGATIVE (NEGATIVE); LEUKOCYTE ESTERASE, URINE AUTO 2+ (NEGATIVE); NITRITE, URINE AUTO NEGATIVE (NEGATIVE); PROTEIN, URINE AUTO NEGATIVE (NEGATIVE); RBC, URINE AUTO 0 /HPF (0-3); SPECIFIC GRAVITY URINE AUTO 1.005 (1.002-1.035); SQUAMOUS EPITHELIAL CELL UR AU 11 /HPF (0-6); UROBILINOGEN, URINE AUTO 0.2 mg/dL (0.0-2.0); WBC, URINE AUTO 7 /HPF (0-3)
[2025-05-20 12:31] LABS: PLATELET COUNT, AUTOMATED 294 10^3/uL (150-450)
[2025-05-20 12:36] VITALS: BP 164/107
[2025-05-20 12:51] LABS: LDH LACTATE DEHYDROGENASE 197 U/L (120-246)
[2025-05-20 12:52] VITALS: BP 149/108
[2025-05-20 12:52] LABS: ALT/SGPT 16 U/L (7.0-40); AST/SGOT 21 U/L (<34); CREATININE FOR GFR 0.51 MG/DL (0.55-1.30); GLOMERULAR FILTRATION RATE > 90.0 (>60)
[2025-05-20 13:22] VITALS: BP 140/104
[2025-05-20] MEDS ORDERED: LABE20TAB PO (13:44)
[2025-05-20] MEDS ORDERED: MACR100C43 PO (13:44)
[2025-05-20] MEDS: LABETALOL 200 MG TAB PO SCH (13:48)
[2025-05-20 14:32] LABS: TOTAL PROTEIN,RANDOM URINE 8.0 MG/DL (0.0-14.0)
== END 2025-05-20 14:16 | disposition home or self-care (01) ==
LOC: M LDO 11:36
PROVIDERS: ATTEND Obstetrics & Gynecology
DX: O13.3 Gestational [pregnancy-induced] hypertension without significant proteinuria, third trimester (principal); O26.893 Other specified pregnancy related conditions, third trimester; R06.02 Shortness of breath; Z3A.35 35 weeks gestation of pregnancy
CPT/HCPCS: 36415; 59025; 81001; 82247; 82570; 83615; 84156; 84450; 84460; 84550; 85027; 93005; 96372; 96374; G0463

== ENCOUNTER → 2025-05-20 | Outpatient (REF) | payer OTHER ==
[~2025-05-20] MED LIST changes: -IBUP-1022 PO; +IBUP600T42 PO
== END ==
LOC: M SFHCWAGY 13:10
PROVIDERS: ATTEND Specialist
DX: Z34.83 Encounter for supervision of other normal pregnancy, third trimester (principal)

== ENCOUNTER 2025-05-26 02:59 | Outpatient (CLI) | payer OTHER ==
[~2025-05-26] VITALS: Ht 157.5 cm; Wt 72.9 kg
[~2025-05-26 02:59] MED LIST changes: -IBUP-1022 PO; +IBUP600T42 PO; +LABE20TAB PO; +MACR100C43 PO
[2025-05-26 03:14] VITALS: BP 123/82; O2SAT 98
== END 2025-05-26 04:47 | disposition home or self-care (01) ==
LOC: M LDO 02:59
PROVIDERS: ATTEND Obstetrics & Gynecology
DX: O47.03 False labor before 37 completed weeks of gestation, third trimester (principal); Z3A.36 36 weeks gestation of pregnancy
CPT/HCPCS: 59025; G0463

== ENCOUNTER 2025-05-29 09:35 | Inpatient (IN) | payer OTHER ==
[~2025-05-29] VITALS: Ht 157.5 cm; Wt 73.8 kg
[2025-05-29] VITALS (23 sets, daily range): BP systolic 119–167; BP diastolic 70–111; O2SAT 97–98
[2025-05-29 10:43] LABS: PLATELET COUNT, AUTOMATED 289 10^3/uL (150-450)
[2025-05-29] MEDS ORDERED: LIDOCAINE 1% MDV 20 ML VIAL INFIL PRN (10:45)
[2025-05-29] MEDS: miSOPROStol 50 MCG 1/2 TABLET SL SCH (11:13)
[2025-05-29 11:47] LABS: HEPATITIS C VIRUS ABY INDEX 0.02 INDEX (<0.8)
[2025-05-29] MEDS: ceFAZolin SOD 2 GM IV ONCE IV ONE (13:04)
[2025-05-29] MEDS: LR 1,000 ML IV SCH (13:09)
[2025-05-29] MEDS: LABETALOL 100 MG TAB PO ONE (13:19)
[2025-05-29] MEDS: FAMOTIDINE 20 MG TAB PO ONE (13:19)
[2025-05-29 13:26] LABS: HIV 1&2 SCREEN NEGATIVE (NEGATIVE)
[2025-05-29] MEDS: ACETAMINOPHEN 500 MG TAB PO PRN (16:07)
[2025-05-29] MEDS: ceFAZolin SOD 1 GM in DEXTROSE 5% (D5W) ADV/MINI-BAG 50 ML IV SCH (20:47)
[2025-05-30] VITALS (42 sets, daily range): BP systolic 115–195; BP diastolic 65–132; O2SAT 98–100
[2025-05-30] MEDS ORDERED: LR 1,000 ML IV SCH (08:35)
[2025-05-30] MEDS: OXYTOCIN DRIP 30 UNITS in IV 1 EA IV SCH (09:39)
[2025-05-30] MEDS ORDERED: LR 500 ML IV PRN (10:45)
[2025-05-30] MEDS ORDERED: EPIDURAL/PCA KEYS XX PRN (10:45)
[2025-05-30] MEDS ORDERED: NALOXONE INJ 0.4 MG/1 ML VIAL IV PRN (10:45)
[2025-05-30] MEDS: FENTANYL/ROPIVACAINE/NACL BAG 100 ML EPIDURAL SCH (11:35)
[2025-05-30] MEDS: diphenhydrAMINE 50 MG/ML VIAL IV PRN ×2 (12:55→22:08)
[2025-05-30] MEDS: ONDANSETRON 4MG 2ML VIAL IV PRN (15:40)
[2025-05-30] MEDS: OXYTOCIN DRIP 30 UNITS in IV 1 EA IV PRN (19:39)
[2025-05-30] MEDS ORDERED: DIBUCAINE 1% OINTMENT 30 GM TOP PRN (19:55)
[2025-05-30] MEDS ORDERED: RHOGAM 300MCG (1500IU) INJ IM SCH (19:55)
[2025-05-30] MEDS ORDERED: METHYLERGONOVINE MALEATE 0.2 MG TAB PO PRN (19:55)
[2025-05-30] MEDS: ACETAMINOPHEN 500 MG TAB PO PRN (20:14)
[2025-05-30] MEDS ORDERED: LABETALOL 100 MG TAB As Ordered ONE (21:20)
[2025-05-30] MEDS: LABETALOL 100 MG TAB PO ONE (21:38)
[2025-05-31] VITALS (7 sets, daily range): BP systolic 115–167; BP diastolic 57–101; O2SAT 97–100
[2025-05-31] MEDS: IBUPROFEN 800 MG TAB PO PRN (00:45)
[2025-05-31] MEDS: DOCUSATE SODIUM 100 MG CAPSULE PO PRN (02:14)
[2025-05-31] MEDS: LABETALOL 100 MG TAB PO SCH (08:41)
[2025-05-31] MEDS: PRENATAL VITAMINS CHEWABLE TABLET PO SCH (08:44)
[2025-05-31] MEDS: ACETAMINOPHEN 325 MG TAB PO PRN (21:36)
[2025-05-31] MEDS: IBUPROFEN 600 MG TAB PO PRN (21:38)
[2025-06-01 02:00] VITALS: BP 128/82; O2SAT 97
[2025-06-01 06:00] VITALS: BP 148/88; O2SAT 97
[2025-06-01] MEDS: MEASLES,MUMPS,RUBELLA VACCINE INJ (MMR-II) SC.IMMUN ONE (09:00)
[2025-06-01 09:14] VITALS: BP 136/91
[2025-06-01] MEDS ORDERED: ACET-683 PO (09:40)
[2025-06-01] MEDS ORDERED: IBUP80TA PO (09:40)
[2025-06-01] MEDS ORDERED: LABE100T6 PO (09:40)
== END 2025-06-01 17:30 | disposition home or self-care (01) | DRG 560 ==
LOC: M LDI 09:35 → M OBS 05-30 21:32
PROVIDERS: ADMIT Specialist; ATTEND Specialist
PROC: 3E0P7GC Introduction of Other Therapeutic Substance into Female Reproductive, Via Natural or Artificial Opening (ICD-10-PCS; 2025-05-29)
PROC: 10E0XZZ Delivery of Products of Conception, External Approach (ICD-10-PCS; principal; 2025-05-30)
PROC: 10907ZC Drainage of Amniotic Fluid, Therapeutic from Products of Conception, Via Natural or Artificial Opening (ICD-10-PCS; 2025-05-30)
DX: O13.4 Gestational [pregnancy-induced] hypertension without significant proteinuria, complicating childbirth (principal); O99.824 Streptococcus B carrier state complicating childbirth; Z3A.37 37 weeks gestation of pregnancy; Z88.2 Allergy status to sulfonamides; Z88.8 Allergy status to other drugs, medicaments and biological substances; Z37.0 Single live birth

== ENCOUNTER → 2025-07-06 | Outpatient (REF) ==
[~2025-07-06] MED LIST changes: +ACET-683 PO; +LABE100T6 PO
== END ==
LOC: M LAB 15:32
PROVIDERS: ATTEND Family Medicine
DX: Z00.00 Encounter for general adult medical examination without abnormal findings (principal)

== ENCOUNTER → 2025-09-02 | Outpatient (REF) | payer OTHER ==
[~2025-09-02] MED LIST changes: -LABE100T6 PO; +LABE100T91 PO
[2025-09-03 14:42] LABS: Trichomonas vaginalis (AMP) NOT DETECTED (NEGATIVE)
[2025-09-03 15:06] LABS: GC DNA AMPLIFICATION NEGATIVE (NEGATIVE)
== END ==
LOC: M LAB REF 12:04
PROVIDERS: ATTEND Student in an Organized Health Care Education/Training Program
DX: R30.0 Dysuria (principal)

== ENCOUNTER 2025-09-18 19:32 | Emergency (ER) | payer OTHER ==
[~2025-09-18] VITALS: Ht 157.5 cm; Wt 68.0 kg
[2025-09-18 19:40] VITALS: BP 158/92; TEMP 98.3; O2SAT 96
[2025-09-18] MEDS: NS (Normal Saline) 0.9% 1,000 ML IV ONE (20:25)
[2025-09-18] MEDS: KETOROLAC 30 MG/ML 1 ML VIAL IV ONE (20:27)
[2025-09-18] MEDS: ACETAMINOPHEN 325 MG TAB PO ONE (20:27)
== END 2025-09-18 23:28 | disposition home or self-care (01) ==
LOC: M ED 19:32 → EDBD 19:32 → M ED 23:28
DX: S05.12XA Contusion of eyeball and orbital tissues, left eye, initial encounter (principal); S01.511A Laceration without foreign body of lip, initial encounter; Y92.9 Unspecified place or not applicable; Y93.9 Activity, unspecified; Y99.9 Unspecified external cause status; Y04.2XXA Assault by strike against or bumped into by another person, initial encounter; Z87.891 Personal history of nicotine dependence; Z88.2 Allergy status to sulfonamides; Z79.1 Long term (current) use of non-steroidal anti-inflammatories (NSAID); Z79.899 Other long term (current) drug therapy; Z79.810 Long term (current) use of selective estrogen receptor modulators (SERMs)
CPT/HCPCS: 70450; 70486; 72125; 96361; 96374; 99284; J1885